=== PATIENT | female | born 2000 | race African-American/Black ===

== ENCOUNTER 2022-03-23 19:09 | Emergency (ER) | payer SELFPAY ==
[~2022-03-23] VITALS: Ht 180.3 cm; Wt 80.0 kg
[2022-03-23 19:26] VITALS: BP 112/71
[2022-03-23] MEDS ORDERED: DICYCLOMINE 10 MG/5 ML ORAL SYR PO STA (20:45)
[2022-03-23] MEDS ORDERED: ONDANSETRON 4MG ODT PO STA (20:45)
[2022-03-23] MEDS ORDERED: MAGNESIUM/ALUMINUM HYDROXIDE/SIMETHICONE 30ML UDC PO STA (20:45)
[2022-03-23] MEDS ORDERED: VISCOUS LIDOCAINE 2% 15 ML UDC PO STA (20:45)
[2022-03-23 21:11] LABS: HEMATOCRIT. 37.5 % (36.0-48.0); HEMOGLOBIN. 12.4 g/dL (12.0-16.0); MEAN CORPUSCULAR HEMOGLOBIN 31.2 pg (28.0-32.0); MEAN CORPUSCULAR VOLUME 94.2 fL (81.0-99.0); MEAN PLATELET VOLUME 8.1 fl (7.4-10.4); PLATELET 319 x1000/uL (130-400); RED BLOOD CELL COUNT 3.98 mill/uL (4.2-5.4)
[2022-03-23 21:19] LABS: CHLORIDE 104 mEq/L (98-107)
[2022-03-23 21:40] LABS: PLATELET ESTIMATE NORMAL
[2022-03-23 21:51] LABS: CLARITY URINE TURBID (CLEAR); COLOR URINE DARK YELLOW (YELLOW); KETONES URINE 3+ (NEGATIVE); LEUKOCYTE ESTERASE URINE TRACE (NEGATIVE); NITRITE URINE NEGATIVE (NEGATIVE); OCCULT BLOOD URINE NEGATIVE (NEGATIVE); PROTEIN URINE 2+ (NEGATIVE)
[2022-03-23] MEDS ORDERED: NITR-87 MT (22:03)
== END 2022-03-23 22:29 | disposition home or self-care (01) ==
LOC: ER 19:09
DX: K29.70 Gastritis, unspecified, without bleeding (principal); N39.0 Urinary tract infection, site not specified
CPT/HCPCS: 36415; 80053; 81003; 81025; 83690; 85025; 99284; Q0162